=== PATIENT | male | born 1960 | race Caucasian/White ===

== ENCOUNTER → 2019-11-22 10:05 | Outpatient (BNVA) | payer MEDICARE, SELFPAY | PROVIDERS: Family Provider Internal Medicine; PCP Internal Medicine; Visit Provider Urology | DX: N41.1 Chronic prostatitis (principal) | CPT/HCPCS: 81001 ==

== ENCOUNTER 2020-05-22 08:24 | Outpatient (CLI) | payer MEDICARE, SELFPAY ==
--- NOTE | 2020-05-22 08:50 | CT_ITS ---
WS: [id number] LDCT LUNG CANCER SCREENING HISTORY: NICOTINE DEPENDENCE, CIGARETTES TECHNIQUE: Axial imaging performed from the apices to 1 cm below the costophrenic angles. Coronal and sagittal reformats are submitted with axial MIP series. All CT scans at [facility] use at least one of these dose optimization techniques: automated exposure control; mA and/or kV adjustment per patient size (includes targeted exams where dose is matched to clinical indication); or iterativ e reconstruction. DLP: 54.9 mGy.cm DIvol: 1.52 mGy COMPARISON: None available. Diagnostic quality: Satisfactory Lung Nodules: No pulmonary nodule or groundglass attenuation. No endobronchial lesions. Lungs: Mild hyperinflation. No pneumonia. Heart: Normal size heart. Other findings: Mild atherosclerosis aorta. Normal size pulmonary artery. Moderate coronary artery ca lcifications. Prior cholecystectomy. CT/CT lung screening [id number] IMPRESSION: LUNG-RADS: 1S-Negative with Significant Findings FOLLOW UP: 12 Month: Continue annual screening with LDCT OTHER FINDINGS (S MODIFIER): Moderate coronary artery atherosclerosis.
--- NOTE | 2020-05-22 08:51 | CT_ITS ---
WS: [id number] CT ABDOMEN AND PELVIS WITH CONTRAST HISTORY: Diffuse abdominal pain. TECHNIQUE: Imaging performed of the abdomen and pelvis with IV contrast. Single phase imaging of the abdomen. Coronal and sagittal reformats are submitted. All CT scans at [facility] use at least one of these dose optimization techniques: automated exposure control; mA and/or kV adjustment per patient size (includes targeted exams where dose is matched to clinical indication); or iterativ e reconstruction. IV CONTRAST: Omnipaque 300; 95 mL IV. Oral contrast: Yes. DLP: 1802.81 mGy.cm COMPARISON: 05/11/2016 Lower thorax: Lung bases are clear. Heart is normal size. No hiatal hernia. Liver/biliary system: Normal size with no intrahepatic dilatation. Gallbladder: Status post cholecystectomy. Pancreas: Normal. Spleen: Normal size spleen with granulomata. Adrenal glands: Normal. Right kidney: Several low-attenuation masses in the cortex of the RIGHT kidney. Similar in appearance to 2016. No solid enlarging mass. No cortical thinning or hydronephrosis. Left kidney: Mild perinephric stranding. Upper pole cyst measures 11 mm. No hydronephrosis or solid m ass. Aorta: Mild atherosclerosis with no aneurysm. Lymphadenopathy: None. Free fluid: None. GI tract: Normal appendix. There is mild fecal retention and constipation. No obstruction. No signifi cant diverticular disease. Abdominal wall: Unremarkable abdominal wall. No hernia. Pelvis: No free fluid or adenopathy. Bones: Increase in lumbar lordosis. L4-5 posterior lumbar fusion with interbody spacer. CT/CT abdomen pelvis w con* [id number] IMPRESSION: 1. No acute abdominal or pelvic abnormalities. 2. Prior cholecystectomy. 3. Atherosclerosis aorta with no aneurysm. 4. Stable bilateral renal cysts.
[2020-05-22] MEDS: iohexol 300 mg/mL 50 mL Btl PO (09:00)
[2020-05-22] MEDS: iohexol 300 mg/mL 100 mL Btl IV (10:46)
== END 2020-05-22 08:25 | disposition home or self-care (01) ==
LOC: RAD 08:25
PROVIDERS: PCP Internal Medicine; Visit Provider Internal Medicine
DX: R10.9 Unspecified abdominal pain (principal); F17.218 Nicotine dependence, cigarettes, with other nicotine-induced disorders; N28.1 Cyst of kidney, acquired; I70.0 Atherosclerosis of aorta; I25.10 Atherosclerotic heart disease of native coronary artery without angina pectoris
CPT/HCPCS: 74177; G0297

== ENCOUNTER 2020-05-22 12:24 | Outpatient (CLI) | payer MEDICARE, SELFPAY ==
[2020-05-22 14:22] LABS: Basophils % 0.3 %; Eosinophils # 0.1 10^3/uL (0.0-0.8); Eosinophils % 0.9 %; Hematocrit 54.1 % (42.0-52.0); Hemoglobin 17.6 g/dL (11.7-16.6); Lymphocytes # 3.2 10^3/uL (0.8-4.8); Mean Corpuscular HGB Conc 32.5 g/dL (30.0-36.0); Mean Corpuscular Hemoglobin 28.5 pg (28.0-34.0); Mean Corpuscular Volume 87.5 fL (80-94); Mean Platelet Volume 10.3 fL (7.4-10.4); Monocytes # 1.2 10^3/uL (0.2-0.9); Monocytes % 8.3 %; Neutrophils # 9.32 10^3/uL (1.8-7.7); Neutrophils % 66.4 %; Nucleated Red Blood Cells % 0 %; Platelet Count 326 10^3/cmm (130-400); Red Blood Count 6.18 10^6/uL (4.1-5.3); Red Cell Distribution Width 14.2 % (12.1-15.1)
[2020-05-22 14:42] LABS: Alanine Aminotransferase 39 U/L (0-41); Albumin Level 4.5 g/dL (3.5-5.2); Alkaline Phosphatase 100 IU/L (40-130); Aspartate Amino Transferase 20 U/L (0-40); Blood Urea Nitrogen 14 mg/dL (6-20); Calcium 9.2 mg/dL (8.5-10.5); Carbon Dioxide 24 mmol/L (22-29); Chloride 102 mmol/L (98-107); Globulin 2.8 g/dL (1.3-4.6); Glomerular Filtration Rate 115.4 mL/min (90-130); Glucose 129 mg/dL (65-115); Osmolality Calculated 284 mOsm/kg (285-295); Sodium 138 mmol/L (136-145); Total Bilirubin 0.3 mg/dL (0.15-1.2); Total Protein 7.3 g/dL (6.6-8.7)
--- NOTE | 2020-05-22 15:18 | ONC CON_ITS ---
Dr. Randall New Patient Note Patient: Hammad Mckeon Unit #: [id number]: 1960 Dicatated By: Paul Randall M.D.Date of Visit: May 22, 2020 Onc MED New Patient/Consult Referring Physician: Dr. CRYSTAL BOOGIE M.D. History of Present Illness: Mr. Hammad Mckeon, is a 60-year-old gentleman with a history of morbid obesity, patient said he used to weigh 300+ pounds and has history of sleep apnea but did not use recommended CPAP machine said 'cannot keep anything on my face'. Now with excessive sleep during daytime and not getting enough sleep at night, patient cannot sleep on his back and uses one pillow only. Also complaining of generalized weakness and fatigue. And he has longstanding history of smoking and still smoke about a pack a day., Denies alcohol use Lab work-up done and PMDs office on May 06, 2020 showed white blood count 13.7 hemoglobin 18 hematocrit 54 normal being 37.5-51, RBC 6.27 normal being 4.14-5.80, platelet count 324,000 with a normal differential further lab testing including erythropoietin level, 6.0 mIU per mL normal being 2.6-18.5, LDH 188 ferritin 153 iron saturation 27% iron 97 TIBC [address] scan of abdomen pelvis on May 22, 2020 which showed no acute abdominopelvic abnormalities, spleen is in normal range low-dose CT scan of lung cancer screening done on May 22, 2020 showed no abnormality History of coronary artery disease status post 3 stents in the past Also has 20+ year history of mild leukocytosis, no work-up was done in the past. Denies any fever chills, denies any nausea or vomiting denies any diarrhea or constipation denies any hemoptysis or hematemesis, recently found to have occult blood in stool now being referred to Dr. Garcia for possible colonoscopy Past Medical History: Mr. Mckeon's medical history consists of chronic pain, degenerative disease of the spine, fibromyalgia, hyperlipidemia, and hypertension. Past Surgical History: Mr. Mckeon's surgical/procedural history consists of angioplasty, hernia repair, and vasectomy. Medications: Albuterol Sulfate 2 Puff(s) (of 108 (90 base) mcg/act) Aerosol Powder, Breath Activated Inhalation q 4 hours PRN, Finasteride 1 Tablet (of 5 mg) Oral daily, Lisinopril 1 Tablet (of 20 mg) Oral daily, Metoprolol Tartrate 1 Tablet (of 25 mg) Oral b.i.d., Omeprazole 1 Capsule (of 40 mg) Capsule Delayed Release Oral b.i.d., Tamsulosin HCl 1 Capsule (of 0.4 mg) Oral b.i.d., traMADol HCl 1 Tablet (of 50 mg) Oral q 8 hours PRN Allergies: Codeine Sulfate and Sulindac. Social History: Mr. Mckeon is . He is a daily smoker who has smoked 1.0 pack/day for 45 years. He has no history of drinking. He has indicated exposure to the following products: cigarettes. Family History: Mr. Mckeon's mother is alive: coronary artery disease, and hypertension, and stomach cancer. Mr. Mckeon's father at age 84: stroke. His paternal grandfather is : lung cancer. Review Of Symptoms: Review of Systems is not available for this patient. Vital Signs: Performed on May 22, 2020 13:39: 0, 32.88 (HIGH), 2.36 sq.m, 73.00 in, 98 %, 98 /min, 24 /min, 118/66 mm(hg), 97.6 F (LOW), and 249.2 lbs (HIGH). Performance Status: 0 - Fully active, able to carry on all predisease activities without restrictions. (ECOG) Physical Examination: ENMT - No mouth sores, no thrush, no jaundice, Respiratory - Poor air entry otherwise clear, Cardiovascular - Regular rate and rhythm of heart, Abdomen - Soft, bowel sounds present, Extremities - No visible edema. Lab/Imaging: Most recent lab results are not available for this patient. Impression: Leukocytosis/polycythemia with a normal platelet count, etiology unclear could be multifactorial including due to hypoxia due to sleep apnea and chronic smoking and leukocytosis could be due to chronic smoking or underlying subclinical chronic bronchitis or stress. Other possibility could be myeloproliferative disorder especially in the presence of leukocytosis and polycythemia together. Generalized weakness and fatigue, excessive sleep during daytime probably due to sleep apnea Chronic smoking Coronary artery disease status post stenting Obesity Plan: Discussed with patient regarding his labs from May 06, 2020 which showed white blood count 13.7 hemoglobin 18 hematocrit 54 normal being 37.5-51 and platelet count 324,000 with a normal differential and iron studies within normal range, erythropoietin on the low side of normal range. Clinically, patient doing reasonably well but with generalized weakness and fatigue and excessive sleep during daytime which is most likely due to sleep apnea, sleep study was recommended but patient declined ,because of personal reasons and moreover does not want to use CPAP machine. Patient said his PMD did exertional pulse oximetry and there was not much change in his oxygen level. Patient was advised his polycythemia could be secondary to underlying sleep apnea causing hypoxia as well as due to chronic smoking, he was advised to quit smoking and was offered any assistance he may need. In the meantime, we will consider testing for Herman 2 mutation to rule out polycythemia vera and also consider FISH for BCR/ABL to rule out early stage CML His hematocrit level is in reasonable range and moreover recently he was found to have occult blood in stool, patient is being referred to Dr. Garcia for colonoscopy, will continue to monitor his hemoglobin/hematocrit and his red blood cell count is less than 25% over normal range, patient was advised to maintain good hydration. Also advised to use multiple pillows to keep his upper body elevated at 45 degrees during sleep, may help his sleep apnea., Ideally, patient should consider sleep study to confirm sleep apnea as he will benefit from CPAP machine which may also improve his polycythemia, As well as his generalized weakness and fatigue. In the meantime, he may benefit from oxygen supplement at night. Patient return to clinic in 3 weeks with CBC, by that time will have his Herman 2 mutation testing and BCR ABL reports back. Signed By: Paul Randall M.D. <<Signature on File>>
== END 2020-05-22 12:25 | disposition home or self-care (01) ==
LOC: ONCMED 12:26
PROVIDERS: PCP Internal Medicine; Visit Provider Internal Medicine Hematology & Oncology
DX: D75.1 Secondary polycythemia (principal); D72.829 Elevated white blood cell count, unspecified; G47.10 Hypersomnia, unspecified; R53.1 Weakness; R53.83 Other fatigue; R19.5 Other fecal abnormalities; F17.210 Nicotine dependence, cigarettes, uncomplicated; I25.10 Atherosclerotic heart disease of native coronary artery without angina pectoris; E66.9 Obesity, unspecified; Z95.5 Presence of coronary angioplasty implant and graft
CPT/HCPCS: 36415; 80053; 81270; 85025; 99203

== ENCOUNTER 2020-06-26 16:17 | Outpatient (CLI) | payer MEDICARE, SELFPAY ==
[2020-06-26 16:41] LABS: Basophils % 0.3 %; Eosinophils # 0.2 10^3/uL (0.0-0.8); Eosinophils % 1.1 %; Hematocrit 51.8 % (42.0-52.0); Hemoglobin 16.9 g/dL (11.7-16.6); Lymphocytes # 3.2 10^3/uL (0.8-4.8); Lymphocytes % 21.8 %; Mean Corpuscular HGB Conc 32.6 g/dL (30.0-36.0); Mean Corpuscular Hemoglobin 28.6 pg (28.0-34.0); Mean Corpuscular Volume 87.8 fL (80-94); Mean Platelet Volume 10.2 fL (7.4-10.4); Monocytes # 1.1 10^3/uL (0.2-0.9); Monocytes % 7.2 %; Neutrophils # 10.16 10^3/uL (1.8-7.7); Neutrophils % 68.5 %; Nucleated Red Blood Cells % 0 %; Platelet Count 326 10^3/cmm (130-400); Red Cell Distribution Width 13.4 % (12.1-15.1); White Blood Count 14.8 10^3/uL (4.0-10.0)
--- NOTE | 2020-07-18 09:25 | ONC FU_ITS ---
Dr. Randall follow up note Patient: Hammad Mckeon Unit #: [id number]: 1960 Dicatated By: Paul Randall M.D.Date of Visit:Jun 27, 2020 Onc Med Follow-up/Prog Note History of Present Illness: Mr. Hammad Mckeon, is a 60-year-old gentleman with a history of morbid obesity, patient said he used to weigh 300+ pounds and has history of sleep apnea but did not use recommended CPAP machine said 'cannot keep anything on my face'. Now with excessive sleep during daytime and not getting enough sleep at night, patient cannot sleep on his back and uses one pillow only. Also complaining of generalized weakness and fatigue. And he has longstanding history of smoking and still smoke about a pack a day., Denies alcohol use Lab work-up done and PMDs office on May 06, 2020 showed white blood count 13.7 hemoglobin 18 hematocrit 54 normal being 37.5-51, RBC 6.27 normal being 4.14-5.80, platelet count 324,000 with a normal differential further lab testing including erythropoietin level, 6.0 mIU per mL normal being 2.6-18.5, LDH 188 ferritin 153 iron saturation 27% iron 97 TIBC [address] scan of abdomen pelvis on May 22, 2020 which showed no acute abdominopelvic abnormalities, spleen is in normal range low-dose CT scan of lung cancer screening done on May 22, 2020 showed no abnormality History of coronary artery disease status post 3 stents in the past Also has 20+ year history of mild leukocytosis, no work-up was done in the past. Denies any fever chills, denies any nausea or vomiting denies any diarrhea or constipation denies any hemoptysis or hematemesis, recently found to have occult blood in stool now being referred to Dr. Garcia for possible colonoscopy Herman 2 mutation Checked on May 22, 2020 not detected Came for follow-up, denies any specific complaints, no fever chills, no nausea or vomiting, no diarrhea or constipation, mild chronic cough still smoke about a pack a day and not using recommended CPAP machine rather said elevating head of bed did help him and is also tried his 's oxygen. Medications: Albuterol Sulfate 2 Puff(s) (of 108 (90 base) mcg/act) Aerosol Powder, Breath Activated Inhalation q 4 hours PRN, Finasteride 1 Tablet (of 5 mg) Oral daily, Lisinopril 1 Tablet (of 20 mg) Oral daily, Metoprolol Tartrate 1 Tablet (of 25 mg) Oral b.i.d., Omeprazole 1 Capsule (of 40 mg) Capsule Delayed Release Oral b.i.d., Tamsulosin HCl 1 Capsule (of 0.4 mg) Oral b.i.d., traMADol HCl 1 Tablet (of 50 mg) Oral q 8 hours PRN Allergies: Codeine Sulfate and Sulindac. Review of Systems: Review of Systems is not available for this patient. Vital Signs: Performed on Jun 27, 2020 09:27 Height - 73.00 in Weight - 249.8 lbs (HIGH) BSA - 2.37 sq.m BMI - 32.96 (HIGH) Temperature - 98.6 F Pulse - 94 /min Respiration - 20 /min BP - 147/95 mm(hg) (HIGH) O2 Sat - 97 % Pain - 0 Performance Status: 0 - Fully active, able to carry on all predisease activities without restrictions. (ECOG) Physical Examination: ENMT - No mouth sores, no thrush, no jaundice, Respiratory - Lungs are clear to auscultation, Heart S1-S2, Abdomen - Soft, bowel sounds present, Extremities - No visible edema or rash. Lab/Imaging: Most recent lab results are not available for this patient. Impression: Leukocytosis/polycythemia with a normal platelet count, etiology unclear could be multifactorial including due to hypoxia due to sleep apnea and chronic smoking and leukocytosis could be due to chronic smoking or underlying subclinical chronic bronchitis or stress. Other possibility could be myeloproliferative disorder especially in the presence of leukocytosis and polycythemia together. Herman 2 mutation tested on May 22, 2020, was not detected Generalized weakness and fatigue, excessive sleep during daytime probably due to sleep apnea Chronic smoking Coronary artery disease status post stenting Obesity Plan: Discussed with patient regarding his labs white blood count 14.6 hemoglobin 16.9 hematocrit 51.8 compared to 54.1 on May 22, 2020 and platelets 326,000 and Herman 2 mutation was tested to rule out polycythemia vera came back negative Clinically, patient doing well with no signs symptom and his follow-up labs shows persistent mild leukocytosis with mildly elevated neutrophils otherwise normal differential and hematocrit have improved, either with elevation of headboard or as patient said he has been using 's oxygen, as far as etiology of polycythemia is concerned probably secondary to hypoxia due to sleep apnea and chronic smoking as Herman 2 mutation came back negative which has ruled out polycythemia vera., Patient was advised to quit smoking and was offered any assistance he may need and he was also advised to use CPAP machine as recommended by his physician patient said he will try. As well leukocytosis concerned probably reactive too to chronic smoking, causing chronic bronchitis or due to smoking itself but to rule out CML, BCL/ABL testing was ordered last time but due to specimen collection in the wrong tube, it was not done so we will collect his placement for BCR/ABL in an appropriate specimen tube this time and then patient return to clinic in 1 month with CBC and to discuss further. Signed By: Paul Randall M.D. <<Signature on File>>
== END 2020-06-26 16:18 | disposition home or self-care (01) ==
PROVIDERS: PCP Internal Medicine; Visit Provider Internal Medicine Hematology & Oncology
DX: D75.1 Secondary polycythemia (principal); D72.829 Elevated white blood cell count, unspecified
CPT/HCPCS: 36415; 85025; 88374

== ENCOUNTER 2020-06-27 06:00 | Outpatient (CLI) | payer MEDICARE, SELFPAY | END 2020-06-27 06:01 | disposition home or self-care (01) | LOC: ONCMED 07-22 05:17 | PROVIDERS: PCP Internal Medicine; Visit Provider Internal Medicine Hematology & Oncology | DX: D75.1 Secondary polycythemia (principal); D72.829 Elevated white blood cell count, unspecified; F17.210 Nicotine dependence, cigarettes, uncomplicated; G47.10 Hypersomnia, unspecified | CPT/HCPCS: 99214 ==

== ENCOUNTER 2020-07-24 06:06 | Outpatient (CLI) | payer MEDICARE, SELFPAY ==
[2020-07-24 11:16] LABS: Basophils # 0.1 10^3/uL (0.0-0.1); Basophils % 0.4 %; Eosinophils # 0.2 10^3/uL (0.0-0.8); Eosinophils % 1.7 %; Hematocrit 51.7 % (42.0-52.0); Hemoglobin 16.5 g/dL (11.7-16.6); Lymphocytes % 24.5 %; Mean Corpuscular HGB Conc 31.9 g/dL (30.0-36.0); Mean Corpuscular Hemoglobin 28.8 pg (28.0-34.0); Mean Corpuscular Volume 90.2 fL (80-94); Mean Platelet Volume 10.2 fL (7.4-10.4); Monocytes % 7.8 %; Neutrophils % 64.7 %; Nucleated Red Blood Cells % 0 %; Platelet Count 345 10^3/cmm (130-400); Red Blood Count 5.73 10^6/uL (4.1-5.3); Red Cell Distribution Width 13.5 % (12.1-15.1); White Blood Count 12.2 10^3/uL (4.0-10.0)
== END 2020-07-24 06:07 | disposition home or self-care (01) ==
PROVIDERS: PCP Internal Medicine; Visit Provider Internal Medicine Hematology & Oncology
DX: D75.1 Secondary polycythemia (principal)
CPT/HCPCS: 36415; 85025

== ENCOUNTER 2020-07-25 05:41 | Outpatient (CLI) | payer MEDICARE, SELFPAY ==
--- NOTE | 2020-07-25 10:52 | ONC FU_ITS ---
Dr. Randall follow up note Patient: Hammad Mckeon Unit #: [id number]: 1960 Dicatated By: Paul Randall M.D.Date of Visit:Jul 25, 2020 Onc Med Follow-up/Prog Note History of Present Illness: Mr. Hammad Mckeon, is a 60-year-old gentleman with a history of morbid obesity, patient said he used to weigh 300+ pounds and has history of sleep apnea but did not use recommended CPAP machine said 'cannot keep anything on my face'. Now with excessive sleep during daytime and not getting enough sleep at night, patient cannot sleep on his back and uses one pillow only. Also complaining of generalized weakness and fatigue. And he has longstanding history of smoking and still smoke about a pack a day., Denies alcohol use Lab work-up done and PMDs office on May 06, 2020 showed white blood count 13.7 hemoglobin 18 hematocrit 54 normal being 37.5-51, RBC 6.27 normal being 4.14-5.80, platelet count 324,000 with a normal differential further lab testing including erythropoietin level, 6.0 mIU per mL normal being 2.6-18.5, LDH 188 ferritin 153 iron saturation 27% iron 97 TIBC [address] scan of abdomen pelvis on May 22, 2020 which showed no acute abdominopelvic abnormalities, spleen is in normal range low-dose CT scan of lung cancer screening done on May 22, 2020 showed no abnormality History of coronary artery disease status post 3 stents in the past Also has 20+ year history of mild leukocytosis, no work-up was done in the past. Denies any fever chills, denies any nausea or vomiting denies any diarrhea or constipation denies any hemoptysis or hematemesis, recently found to have occult blood in stool now being referred to Dr. Garcia for possible colonoscopy Herman 2 mutation Checked on May 22, 2020 not detected, FISH for BCR ABL was also negative Came for follow-up, denies any specific complaints, no fever chills, no nausea or vomiting, no diarrhea or constipation, no headaches blurred vision or double vision, still smoke about pack a day. Medications: Albuterol Sulfate 2 Puff(s) (of 108 (90 base) mcg/act) Aerosol Powder, Breath Activated Inhalation q 4 hours PRN, Finasteride 1 Tablet (of 5 mg) Oral daily, Lisinopril 1 Tablet (of 20 mg) Oral daily, Metoprolol Tartrate 1 Tablet (of 25 mg) Oral b.i.d., Omeprazole 1 Capsule (of 40 mg) Capsule Delayed Release Oral b.i.d., Tamsulosin HCl 1 Capsule (of 0.4 mg) Oral b.i.d., traMADol HCl 1 Tablet (of 50 mg) Oral q 8 hours PRN Allergies: Codeine Sulfate and Sulindac. Review of Systems: Review of Systems is not available for this patient. Vital Signs: Performed on Jul 25, 2020 10:01 Height - 73.00 in Weight - 251.6 lbs (HIGH) BSA - 2.37 sq.m BMI - 33.19 (HIGH) Temperature - 98.8 F Pulse - 86 /min Respiration - 24 /min BP - 158/85 mm(hg) (HIGH) O2 Sat - 96 % Pain - 0 Performance Status: 0 - Fully active, able to carry on all predisease activities without restrictions. (ECOG) Physical Examination: ENMT - No mouth sores, no thrush, no jaundice, Respiratory - Poor air entry otherwise clear, Cardiovascular - Regular rate and rhythm of heart, Abdomen - Soft, bowel sounds present, Extremities - No visible edema. Lab/Imaging: Test performed on Jul 24, 2020 10:53 WBC 12.2 10 3/uL RBC 5.73 10 6/uL HGB 16.5 g/dL HCT 51.7 % MCV 90.2 fL MCH 28.8 pg MCHC 31.9 g/dL RDW 13.5 % Platelet Count 345 10 3/cmm MPV 10.2 fL Neutrophils 7.90 10 3/uL Lymphocytes 3.0 10 3/uL Monocytes 1.0 10 3/uL Eosinophils 0.2 10 3/uL Basophils 0.1 10 3/uL Neutrophil % 64.7 % Lymphocyte % 24.5 % Monocyte % 7.8 % Eosinophil % 1.7 % Basophils % 0.4 % NRBC % 0 % Test performed on Jun 27, 2020 09:57 BCR/ABL Source ORDERED WRONG TEST/SPRSA2 BCR/ABL Previous Quant ORDERED WRONG TEST/SPRSA2 Test performed on May 22, 2020 14:10 Sodium 138 mmol/L Potassium 4.0 mmol/L Chloride 102 mmol/L CO2 24 mmol/L Anion Gap 16.0 BUN 14 mg/dL Creatinine 0.7 mg/dL Cr Clearance (Est) 182.10 mL/min eGFR 115.4 mL/min Glucose 129 mg/dL Calcium 9.2 mg/dL Osmolality - Calculated 284 mOsm/kg Protein, Total 7.3 g/dL Albumin 4.5 g/dL Globulin 2.8 g/dL Bilirubin, Total 0.3 mg/dL ALT (SGPT) 39 U/L AST (SGOT) 20 U/L Alkaline Phosphatase 100 IU/L Impression: Leukocytosis/polycythemia with a normal platelet count, etiology unclear could be multifactorial including due to hypoxia due to sleep apnea and chronic smoking and leukocytosis could be due to chronic smoking or underlying subclinical chronic bronchitis or stress. Other possibility could be myeloproliferative disorder especially in the presence of leukocytosis and polycythemia together. But less likely as Herman 2 mutation and FISH for BCR ABL came back negative Generalized weakness and fatigue, excessive sleep during daytime probably due to sleep apnea Chronic smoking Coronary artery disease status post stenting Obesity Sleep apnea Plan: Discussed with patient regarding his labs white blood count 12.2 hemoglobin 16.5 hematocrit 51.7 normal range being 42-52, platelets 345,000, FISH for BCR ABL came back negative Clinically, patient doing well with no new signs symptoms his follow-up labs shows persistent mild leukocytosis but further improvement in his white blood count today 12.2 compared to 14.8 on June 26, 2020 and FISH for BCR ABL was done which came back negative so is less likely patient has myeloproliferative disorder rather his leukocytosis appears to be reactive to chronic smoking and/chronic bronchitis. Patient was advised to quit smoking and also advised to consider CPAP as recommended by his PMD. As it may improve his secondary polycythemia. He was also advised to maintain hydration. Return to clinic in 3 months with CBC Signed By: Paul Randall M.D. <<Signature on File>>
== END 2020-07-25 05:42 | disposition home or self-care (01) ==
LOC: ONCMED 05:42
PROVIDERS: PCP Internal Medicine; Visit Provider Internal Medicine Hematology & Oncology
DX: D72.829 Elevated white blood cell count, unspecified (principal); D75.1 Secondary polycythemia; R53.1 Weakness; R53.83 Other fatigue; I25.10 Atherosclerotic heart disease of native coronary artery without angina pectoris; E66.9 Obesity, unspecified; G47.30 Sleep apnea, unspecified; F17.210 Nicotine dependence, cigarettes, uncomplicated; Z95.5 Presence of coronary angioplasty implant and graft; Z68.33 Body mass index [BMI] 33.0-33.9, adult
CPT/HCPCS: G0463

== ENCOUNTER 2020-10-07 13:38 | Outpatient (CLI) | payer MEDICARE, SELFPAY ==
[2020-10-07 14:21] LABS: Basophils # 0.1 10^3/uL (0.0-0.1); Basophils % 0.4 %; Eosinophils # 0.2 10^3/uL (0.0-0.8); Eosinophils % 1.4 %; Hematocrit 52.2 % (42.0-52.0); Hemoglobin 16.9 g/dL (11.7-16.6); Lymphocytes # 3.3 10^3/uL (0.8-4.8); Lymphocytes % 25.7 %; Mean Corpuscular HGB Conc 32.4 g/dL (30.0-36.0); Mean Corpuscular Hemoglobin 28.2 pg (28.0-34.0); Mean Corpuscular Volume 87.1 fL (80-94); Monocytes # 0.9 10^3/uL (0.2-0.9); Monocytes % 7.3 %; Neutrophils % 64.1 %; Nucleated Red Blood Cells % 0 %; Platelet Count 298 10^3/cmm (130-400); Red Blood Count 5.99 10^6/uL (4.1-5.3); Red Cell Distribution Width 13.3 % (12.1-15.1); White Blood Count 12.8 10^3/uL (4.0-10.0)
--- NOTE | 2020-10-07 16:07 | ONC FU_ITS ---
Dr. Randall follow up note Patient: Hammad Mckeon Unit #: [id number]: 1960 Dicatated By: Paul Randall M.D.Date of Visit:Oct 07, 2020 Onc Med Follow-up/Prog Note History of Present Illness: Mr. Hammad Mckeon, is a 60-year-old gentleman with a history of morbid obesity, patient said he used to weigh 300+ pounds and has history of sleep apnea but did not use recommended CPAP machine said 'cannot keep anything on my face'. Now with excessive sleep during daytime and not getting enough sleep at night, patient cannot sleep on his back and uses one pillow only. Also complaining of generalized weakness and fatigue. And he has longstanding history of smoking and still smoke about a pack a day., Denies alcohol use Lab work-up done and PMDs office on May 06, 2020 showed white blood count 13.7 hemoglobin 18 hematocrit 54 normal being 37.5-51, RBC 6.27 normal being 4.14-5.80, platelet count 324,000 with a normal differential further lab testing including erythropoietin level, 6.0 mIU per mL normal being 2.6-18.5, LDH 188 ferritin 153 iron saturation 27% iron 97 TIBC [address] scan of abdomen pelvis on May 22, 2020 which showed no acute abdominopelvic abnormalities, spleen is in normal range low-dose CT scan of lung cancer screening done on May 22, 2020 showed no abnormality History of coronary artery disease status post 3 stents in the past Also has 20+ year history of mild leukocytosis, no work-up was done in the past. Denies any fever chills, denies any nausea or vomiting denies any diarrhea or constipation denies any hemoptysis or hematemesis, recently found to have occult blood in stool now being referred to Dr. Garcia for possible colonoscopy Herman 2 mutation Checked on May 22, 2020 not detected, FISH for BCR ABL was also negative Came for follow-up, denies any specific complaints except chronic muscle aches and pains otherwise no fever chills, no nausea or vomiting, no diarrhea constipation, no headaches no shortness of breath, no chest heaviness, no nausea or vomiting.And still smoking actively Medications: Albuterol Sulfate 2 Puff(s) (of 108 (90 base) mcg/act) Aerosol Powder, Breath Activated Inhalation q 4 hours PRN, Finasteride 1 Tablet (of 5 mg) Oral daily, Lisinopril 1 Tablet (of 20 mg) Oral daily, Metoprolol Tartrate 1 Tablet (of 25 mg) Oral b.i.d., Omeprazole 1 Capsule (of 40 mg) Capsule Delayed Release Oral b.i.d., Tamsulosin HCl 1 Capsule (of 0.4 mg) Oral b.i.d., traMADol HCl 1 Tablet (of 50 mg) Oral q 8 hours PRN Allergies: Codeine Sulfate and Sulindac. Review of Systems: Review of Systems is not available for this patient. Vital Signs: Performed on Oct 07, 2020 15:12 Height - 73.00 in Weight - 251.4 lbs (LOW) BSA - 2.37 sq.m BMI - 33.17 (HIGH) Temperature - 97.6 F (LOW) Pulse - 105 /min (HIGH) Respiration - 18 /min BP - 150/78 mm(hg) (HIGH) O2 Sat - 97 % Pain - 4 Performance Status: 1 - No physically strenuous activity, but ambulatory and able to carry out light or sedentary work (e.g. office work, light house work). (ECOG) Physical Examination: ENMT - Patient denies any mouth sores, Respiratory - Denies any shortness of breath or wheezing, Cardiovascular - Denies any palpitation, Abdomen - Denies any abdominal pain, Extremities - Denies any edema. Lab/Imaging: Test performed on Oct 07, 2020 13:55 WBC 12.8 10 3/uL RBC 5.99 10 6/uL HGB 16.9 g/dL HCT 52.2 % MCV 87.1 fL MCH 28.2 pg MCHC 32.4 g/dL RDW 13.3 % Platelet Count 298 10 3/cmm MPV 11.0 fL Neutrophils 8.20 10 3/uL Lymphocytes 3.3 10 3/uL Monocytes 0.9 10 3/uL Eosinophils 0.2 10 3/uL Basophils 0.1 10 3/uL Neutrophil % 64.1 % Lymphocyte % 25.7 % Monocyte % 7.3 % Eosinophil % 1.4 % Basophils % 0.4 % NRBC % 0 % Test performed on Jun 27, 2020 09:57 BCR/ABL Source ORDERED WRONG TEST/SPRSA2 BCR/ABL Previous Quant ORDERED WRONG TEST/SPRSA2 Test performed on May 22, 2020 14:10 Sodium 138 mmol/L Potassium 4.0 mmol/L Chloride 102 mmol/L CO2 24 mmol/L Anion Gap 16.0 BUN 14 mg/dL Creatinine 0.7 mg/dL Cr Clearance (Est) 182.10 mL/min eGFR 115.4 mL/min Glucose 129 mg/dL Calcium 9.2 mg/dL Osmolality - Calculated 284 mOsm/kg Protein, Total 7.3 g/dL Albumin 4.5 g/dL Globulin 2.8 g/dL Bilirubin, Total 0.3 mg/dL ALT (SGPT) 39 U/L AST (SGOT) 20 U/L Alkaline Phosphatase 100 IU/L Impression: Leukocytosis/polycythemia with a normal platelet count, etiology unclear could be multifactorial including due to hypoxia due to sleep apnea and chronic smoking and leukocytosis could be due to chronic smoking or underlying subclinical chronic bronchitis or stress. Other possibility could be myeloproliferative disorder especially in the presence of leukocytosis and polycythemia together. But less likely as Herman 2 mutation and FISH for BCR ABL came back negative Generalized weakness and fatigue, excessive sleep during daytime probably due to sleep apnea Chronic smoking Coronary artery disease status post stenting Obesity Sleep apnea Plan: Discussed with patient regarding his labs white blood count 12.8 hemoglobin 16.9 hematocrit 52.2 platelets 258,000 Clinically, patient is doing reasonably well with no new signs symptoms his follow-up CBC shows persistent polycythemia which is secondary to hypoxia due to underlying sleep apnea but patient is declining sleep study or CPAP, as per patient, he uses home oxygen on as-needed basis, patient was encouraged to either lose weight or consider sleep study as he would benefit from CPAP or use of home oxygen on regular basis, which may improve his secondary polycythemia As for the leukocytosis concern, FISH for BCR ABL was negative and we would consider flow cytometry to rule out other myeloproliferative disorder but patient wants to wait till next appointment.. Return to clinic in 2 months with CBC and flow cytometry, patient was advised to reconsider evaluation for possible sleep apnea and in the meantime use home oxygen regularly and maintain hydrationAnd was advised to quit smoking and was offered any assistance he may need Signed By: Paul Randall M.D. <<Signature on File>>
== END 2020-10-07 13:39 | disposition home or self-care (01) ==
LOC: ONCMED 13:40
PROVIDERS: PCP Internal Medicine; Visit Provider Internal Medicine Hematology & Oncology
DX: D75.1 Secondary polycythemia (principal); G47.30 Sleep apnea, unspecified; Z99.81 Dependence on supplemental oxygen; D72.829 Elevated white blood cell count, unspecified; F17.200 Nicotine dependence, unspecified, uncomplicated; E66.9 Obesity, unspecified; Z68.33 Body mass index [BMI] 33.0-33.9, adult; I25.10 Atherosclerotic heart disease of native coronary artery without angina pectoris; Z95.5 Presence of coronary angioplasty implant and graft
CPT/HCPCS: 36415; 85025; G0463

== ENCOUNTER 2020-12-10 11:12 | Outpatient (CLI) | payer MEDICARE, SELFPAY ==
[2020-12-10 12:46] LABS: Basophils # 0.1 10^3/uL (0.0-0.1); Basophils % 0.9 %; Eosinophils # 0.2 10^3/uL (0.0-0.8); Eosinophils % 1.6 %; Hematocrit 56.9 % (42.0-52.0); Hemoglobin 17.9 g/dL (11.7-16.6); Lymphocytes # 3.1 10^3/uL (0.8-4.8); Lymphocytes % 25.8 %; Mean Corpuscular HGB Conc 31.5 g/dL (30.0-36.0); Mean Corpuscular Hemoglobin 28.5 pg (28.0-34.0); Mean Corpuscular Volume 90.6 fL (80-94); Mean Platelet Volume 10.1 fL (7.4-10.4); Monocytes # 1.3 10^3/uL (0.2-0.9); Monocytes % 10.4 %; Neutrophils # 7.33 10^3/uL (1.8-7.7); Neutrophils % 60.1 %; Nucleated Red Blood Cells % 0 %; Platelet Count 246 10^3/cmm (130-400); Red Blood Count 6.28 10^6/uL (4.1-5.3); Red Cell Distribution Width 14.2 % (12.1-15.1); White Blood Count 12.2 10^3/uL (4.0-10.0)
[2020-12-10 13:27] LABS: Alanine Aminotransferase 39 U/L (0-41); Albumin Level 4.3 g/dL (3.5-5.2); Alkaline Phosphatase 96 IU/L (40-130); Anion Gap 14.3 (5-19); Aspartate Amino Transferase 23 U/L (0-40); Blood Urea Nitrogen 15 mg/dL (6-20); Calcium 9.7 mg/dL (8.5-10.5); Carbon Dioxide 27 mmol/L (22-29); Chloride 101 mmol/L (98-107); Globulin 2.9 g/dL (1.3-4.6); Glomerular Filtration Rate 98.9 mL/min (90-130); Glucose 109 mg/dL (65-115); Osmolality Calculated 287 mOsm/kg (285-295); Potassium 4.3 mmol/L (3.5-5.1); Sodium 138 mmol/L (136-145); Total Bilirubin 0.3 mg/dL (0.15-1.2); Total Protein 7.2 g/dL (6.6-8.7)
[2020-12-12 18:27] LABS: Leuk/Lymp. Number of Markers 22; Leukemia/Lymph. Clinical Infor NOT GIVEN; Leukemia/Lymph. Spec Type BLOOD; Leukemia/Lymph. Viability 99 %
--- NOTE | 2020-12-18 13:15 | ONC FU_ITS ---
[facility] Patient Note Patient: Hammad Mckeon Unit #: [id number]: 1960 Dictated By: Mohini LindsayDate of Visit: Dec 10, 2020 Onc MED Follow-Up/Prog Note Chief Complaint: Polycythemia/leukocytosis History of Present Illness: Mr. Mckeon is a 60-year-old gentleman with a history of morbid obesity. He states he used to weigh 300+ pounds and has history of sleep apnea. He does not use recommended CPAP machine as he states I cannot keep anything on my face . He has excessive daytime drowsiness and sleepiness. He states he does not get enough sleep at night, patient cannot sleep on his back and uses one pillow only. He has chronic generalized weakness and fatigue. And he has longstanding history of smoking and still smoke about a pack a day. Denies alcohol use. Lab work-up done and Ds office on May 06, 2020 showed white blood count 13.7 hemoglobin 18 hematocrit 54 normal being 37.5-51, RBC 6.27 normal being 4.14-5.80, platelet count 324,000 with a normal differential. Further lab testing including erythropoietin level, 6.0 mIU per mL normal being 2.6-18.5, LDH 188 ferritin 153 iron saturation 27% iron 97 TIBC 360. Mr Mckeon underwent CT scan of abdomen pelvis on May 22, 2020 which showed no acute abdominopelvic abnormalities; spleen is in normal range. Low-dose CT scan of lung for cancer screening done on May 22, 2020 showed no abnormality. History of coronary artery disease status post 3 stents in the past Also has 20+ year history of mild leukocytosis, no work-up was done in the past. Denies any fever chills, denies any nausea or vomiting denies any diarrhea or constipation denies any hemoptysis or hematemesis, recently found to have occult blood in stool now being referred to Dr. Garcia for possible colonoscopy Herman 2 mutation Checked on May 22, 2020 not detected, FISH for BCR ABL was also negative. Mr. Mckeon is here today for follow-up. He has no new concerns. He states he still has fatigue but is the same. He states is no better or no worse. He states he has chronic bilateral knee pain but does not want to pursue any kind of surgery or other treatment. He states it is tolerable. He states that he has not had the Covid vaccine and is not interested in pursuing it at this time. He denies any Covid symptoms. He states his headache spot that he thinks has been a skin cancer on his right ear but that has been healing well recently. He states he is taking antioxidants and he thinks this is helping his ear a lot. He denies any new shortness of breath orthopnea. He states his breathing is about the same. He denies any diarrhea or constipation. He denies any lower extremity edema. He denies any evidence of blood clots such as unilateral swelling or sudden increase of shortness of breath. He denies any chest pain or palpitations. His ECOG is 2. Past Medical History: Chronic pain Degenerative disease of the spine Fibromyalgia Hyperlipidemia Hypertension Past Surgical History: Angioplasty Hernia repair Vasectomy Allergies: Codeine Sulfate and Sulindac. Medications: Albuterol Sulfate 2 Puff(s) (of 108 (90 base) mcg/act) Aerosol Powder, Breath Activated Inhalation q 4 hours PRN Finasteride 1 Tablet (of 5 mg) Oral daily Lisinopril 1 Tablet (of 20 mg) Oral daily Metoprolol Tartrate 1 Tablet (of 25 mg) Oral b.i.d. Omeprazole 1 Capsule (of 40 mg) Capsule Delayed Release Oral b.i.d. Tamsulosin HCl 1 Capsule (of 0.4 mg) Oral b.i.d. traMADol HCl 1 Tablet (of 50 mg) Oral q 8 hours PRN Family History: Mr. Mckeon's mother is alive: coronary artery disease, and hypertension, and stomach cancer. Mr. Mckeon's father at age 84: stroke. His paternal grandfather is : lung cancer. Social History: Mr. Mckeon is . He is a daily smoker who has smoked 1.0 pack/day for 46 years. He has no history of drinking. He has indicated exposure to the following products: cigarettes. Review Of Symptoms: Constitutional Denies fevers, chills, night sweats, no worsening or excessive fatigue or weight loss. Eyes Denies significant visual changes. No diplopia. No amaurosis. ENMT Denies changes in hearing, sore throat, mouth sores, difficulty or changes in swallowing ability, and/or sinus drainage. Hematologic/Lymphatic Denies easy bruising or bleeding. The patient denies any tender or palpable lymph nodes. Respiratory Denies new dyspnea on exertion, chest pain, cough or hemoptysis. Denies orthopnea. Still SOB but no worse Cardiovascular Denies anginal chest pain, palpitations or orthopnea. Gastrointestinal Denies nausea, vomiting, diarrhea, GI bleeding, or constipation. Denies change in bowel habits and/or stool color, no heartburn or early satiety. Genitourinary (M) Denies hematuria, dysuria, increased frequency, urgency, hesitancy or incontinence. Musculoskeletal Denies joint pain, swelling or redness. No decreased range of motion. Integumentary Denies chronic rashes, inflammation, ulcerations or skin changes. Neurologic Denies headache, blurred vision, and no areas of focal weakness or numbness. Normal gait. No sensory problems. Psychiatric Denies insomnia, depression, isac or mood swings. Vital Signs: Performed on Dec 10, 2020 12:34 Height - 73.00 in Weight - 258.2 lbs (HIGH) BSA - 2.40 sq.m BMI - 34.07 (HIGH) Temperature - 98.0 F (LOW) Pulse - 88 /min Respiration - 17 /min BP - 123/78 mm(hg) O2 Sat - 96 % Pain - 5,2 - Ambulatory/capable of all self-care, unable to perform any work activities. Up and about more than 50% of waking hours. (ECOG) Physical Examination: Constitutional Alert, oriented, no acute distress. Skin pink, warm and dry. Head Normocephalic; atraumatic. Eyes Conjunctivae and sclerae are clear and without icterus. Pupils are reactive and equal. Neck Supple without masses or thyromegaly. No jugular venous distension. Hematologic/Lymphatic No petechiae or purpura. No tender or palpable lymph nodes in the cervical or supraclavicular areas. Respiratory Lungs are clear to auscultation without rhonchi or wheezing. Cardiovascular Regular rate and rhythm of heart without murmurs,clicks, gallops or rubs. Abdomen Non-tender, non-distended, no masses or ascites. Good bowel sounds noted in all quads. No guarding or rebound tenderness. No pulsatile masses. Back/Spine Non-tender to palpation. Extremities No visible deformities, no cyanosis, clubbing or edema. Musculoskeletal No tenderness or swelling, normal range of motion without obvious weakness. Integumentary No rashes or lesions. Neurologic No sensory or motor deficits, normal cerebellar function, normal gait. Psychiatric Alert and oriented times three. Coherent speech. Verbalizes understanding of our discussions today. Laboratory:Test performed on Dec 10, 2020 11:40 Sodium 138 mmol/L Potassium 4.3 mmol/L Chloride 101 mmol/L CO2 27 mmol/L Anion Gap 14.3 BUN 15 mg/dL Creatinine 0.8 mg/dL Cr Clearance (Est) 164.7000 mL/min eGFR 98.9 mL/min Glucose 109 mg/dL Osmolality - Calculated 287 mOsm/kg Calcium 9.7 mg/dL Protein, Total 7.2 g/dL Albumin 4.3 g/dL Globulin 2.9 g/dL Bilirubin, Total 0.3 mg/dL ALT (SGPT) 39 U/L AST (SGOT) 23 U/L Alkaline Phosphatase 96 IU/L WBC 12.2 10 3/uL RBC 6.28 10 6/uL HGB 17.9 g/dL HCT 56.9 % MCV 90.6 fL MCH 28.5 pg MCHC 31.5 g/dL RDW 14.2 % Platelet Count 246 10 3/cmm MPV 10.1 fL Neutrophils 7.33 10 3/uL Lymphocytes 3.1 10 3/uL Monocytes 1.3 10 3/uL Eosinophils 0.2 10 3/uL Basophils 0.1 10 3/uL Neutrophil % 60.1 % Lymphocyte % 25.8 % Monocyte % 10.4 % Eosinophil % 1.6 % Basophils % 0.9 % NRBC % 0 % Leukemia/Lymphoma Interp NOT GIVEN Test performed on Jun 27, 2020 09:57 BCR/ABL Source ORDERED WRONG TEST/SPRSA2 BCR/ABL Previous Quant ORDERED WRONG TEST/SPRSA2 Impression: Leukocytosis/polycythemia with a normal platelet count, etiology unclear could be multifactorial including due to hypoxia due to sleep apnea and chronic smoking and leukocytosis could be due to chronic smoking or underlying subclinical chronic bronchitis or stress. Other possibility could be myeloproliferative disorder especially in the presence of leukocytosis and polycythemia together. But less likely as Herman 2 mutation and FISH for BCR ABL came back negative Generalized weakness and fatigue, excessive sleep during daytime probably due to sleep apnea Chronic smoking Coronary artery disease status post stenting Obesity Sleep apnea Plan: PROBLEMS ADDRESSED TODAY 1. Polycythemia/leukocytosis A. His FISH for BCR ABL was negative B. Flow cytometry was not obtained until the blood work was drawn today. Is currently pending at visit. C. Today's labs were reviewed in detail discussed with Mr. Mckeon. WBC 12.2, hemoglobin 17.9, platelets 10 46,000 and ANC is 7330. D. Dr. Randall's last office notes indicate that he could be having persistent polycythemia secondary to hypoxia due to underlying treated sleep apnea. Mr. Mckeon has not pursued a sleep study or CPAP. E. Once his flow studies are returned we will review his results with Dr. Randall and call Mr. Call back with further instructions. Dr. Randall is currently out of the office but will return next week. F. Mr. Mckeon instructed to contact us in interim should questions or problems arise. Signed By: Mohini Lindsay-, [facility] Paul Randall MD <<Signature on File>>
== END 2020-12-10 11:13 | disposition home or self-care (01) ==
LOC: ONCMED 11:15
PROVIDERS: Internal Medicine Hematology & Oncology; PCP Internal Medicine; Visit Provider Nurse Practitioner
DX: D75.1 Secondary polycythemia (principal); D72.829 Elevated white blood cell count, unspecified; G47.30 Sleep apnea, unspecified; E66.9 Obesity, unspecified; Z68.34 Body mass index [BMI] 34.0-34.9, adult
CPT/HCPCS: 36415; 80053; 85025; 88184; 88185; 99214

== ENCOUNTER → 2021-01-19 09:30 | Outpatient (BNVA) | payer MEDICARE, SELFPAY | PROVIDERS: PCP Internal Medicine; Visit Provider Urology | DX: Z12.5 Encounter for screening for malignant neoplasm of prostate (principal); N40.1 Benign prostatic hyperplasia with lower urinary tract symptoms; N13.8 Other obstructive and reflux uropathy | CPT/HCPCS: 81003; G0103 ==

== ENCOUNTER 2021-04-02 12:37 | Outpatient (CLI) | payer MEDICARE, SELFPAY ==
--- NOTE | 2021-04-02 13:00 | MR_ITS ---
WS: [id number] MRI LEFT KNEE NONCONTRAST TECHNIQUE: Axial PD, coronal PD fat sat, coronal PD, sagittal PD, and sagittal PD fat-sat images obta ined. CLINICAL INFORMATION: LEFT KNEE JOINT PAIN COMPARISON: None. FINDINGS: Distal quadriceps and patella tendons are intact. Hypertrophic patella. Normal ACL and PCL. Hypertrop hic patella. Chronic thinning of the medial and lateral meniscus. No acute appearing meniscal tears. Moderate chondromalacia involving the medial and lateral joint compartments. Moderate to advanced chondromalacia patella worse involving the medial patella facet. Subchondral yanet ma involving the patella. Normal medial and lateral patellar retinaculum. Soft tissue edema about the knee joint. Normal popliteal fossa. Normal medial and lateral collateral ligaments. Normal bone miriam ow signal in the femoral condyles and tibial plateau. MR/MR knee LT wo con* [id number] IMPRESSION: 1. Normal ACL and PCL. 2. No acute appearing meniscal tears. Moderate chronic narrowing of the medial and lateral joint compartments with chondromalacia. 3. Advanced grade IV chondromalacia patella with subchondral edema worse invol ving the medial patella facet. 4. Medial and lateral collateral ligaments are intact. Outbridge grading: grade III: partial-thickness cartilage loss with focal ulcer ation
== END 2021-04-02 12:38 | disposition home or self-care (01) ==
LOC: RADSHAW 12:38
PROVIDERS: PCP Internal Medicine; Visit Provider Nurse Practitioner Family
DX: M25.562 Pain in left knee (principal); M22.42 Chondromalacia patellae, left knee
CPT/HCPCS: 73721

== ENCOUNTER 2021-04-09 06:40 | Outpatient (CLI) | payer MEDICARE, SELFPAY ==
[2021-04-09 07:09] VITALS: BMI 37.3
--- NOTE | 2021-04-09 07:09 | ECG_ITS ---
[facility] Test Date: 2021-04-09 Pat Name: Hammad Mckeon Department: Room: Gender: Male Slumber Room Attendant: : 1960 Requested By: Ada Simons Order Number: [id number] [place] MD: ADA SIMONS Interpretive Statements NAME OF STUDY: LEXISCAN SESTAMIBI STRESS TEST INDICATION: Chest Pain, NOTE: Please note that this is the electrocardiogram portion of the Lexiscan/Sestamibi stress test. The perfusion scan will be documented separately. DATA: Baseline heart rate was 88 beats per minute. Baseline blood pressure was 154/110 millimeters of mercury. Target heart rate was 119. Maximum heart rate achieved was 117. which was 73 % of the predicted target heart rate. Maximum blood pressure was 172/110 millimeters of mercury. The reason for ending the test was completion of the protocol. The patient did not experience any symptoms. ELECTROCARDIOGRAM: BASELINE: Sinus rhythm. Normal axis. Otherwise, no ST-T changes suggestive of ischemia noted. No arrhythmia noted. EXERCISE: After Lexiscan injection, no ST-T changes suggestive of ischemic noted. No arrhythmia noted. CONCLUSION: Please note due to baseline abnormality of the EKG specificity and sensitivity of the EKG portion of LexiScan MIBI stress test will be low 1. EKG not suggestive of ischemia 2. Lexiscan injection triggered hypertensive response. 3. Perfusion scan will be documented separately. Electronically Signed On 04-09-2021 11:23:13 CDT by ADA SIMONS [id number]
--- NOTE | 2021-04-09 07:09 | NMCV_ITS ---
NM mac perf SPECT r/s* [id number] Mike Hammad Age: 60 Gender: M : 1960 Exam Date: 04/09/2021 08:06 Ordering Phys: Ada Simons MD ([email or web address]) Technologist: BRIAN Alston Exam Location: [facility] Indications: CHEST PAIN STRESS TEST Please see separate stress test report in [facility] for full findings IMAGE PROTOCOL Radiopharmaceutical Dose (mCi) Administration Site Administered by Rest: Tc-99m IV Sestamibi Stress:Tc-99m IV Sestamibi Rest: Discovery 630 Stress: Discovery 630 Small area of fixed perfusion defect noted in basal to mid anterior wall on the rest images which improved over stress images suggestive of artifact. Medium- sized area of moderate reversibility noted in the basal to mid inferolateral wall suggestive of ischemia in circumflex territory. SPECT RESULTS Technical Quality: Raw Data Analysis: Image Corrections: Summed Stress Score: 0 Summed Rest Score: 0 Summed Difference Score: 0 PERFUSION FINDINGS Small area of decreased tracer uptake noted on the rest images in the mid anterior wall which improved on stress images suggestive of artifact. Medium- sized area of moderate reversibility noted in basal to mid inferolateral wall suggestive of ischemia in the circumflex territory FUNCTIONAL RESULTS (calculated via Gated SPECT) Rest Image LV EF (%): 70 FUNCTIONAL FINDINGS: There is normal left ventricular systolic function. IMPRESSIONS Medium-sized area of moderate reversibility noted in the basal to mid inferolateral wall suggestive of ischemia in circumflex territory. EKG segment was documented separately. Ada Simons MD (Electronically Signed) Final Date: 09 April 2021 16:52 S
--- NOTE | 2021-04-09 07:15 | USCV_ITS ---
Hammad Mckeon Age: 60 Gender: M : 1960 Exam Date: 04/09/2021 06:58 Ordering Phys: Ada Simons MD ([email or web address]) Technologist: Exam [place] [facility] [place]: CHEST PAIN BP: 160 / 80 HR: 88 Rhythm: Sinus Technical Quality: Fair MEASUREMENTS (Male / Female) Normal Values 2D ECHO LV Diastolic Diameter PLAX 5.0 cm 4.2 - 5.9 / 3.9 - 5.3 cm LV Systolic Diameter PLAX 2.8 cm IVS Diastolic Thickness 1.0 cm 0.6 - 1.0 / 0.6 - 0.9 cm IVS Systolic Thickness 1.6 cm LVPW Diastolic Thickness 1.2 cm 0.6 - 1.0 / 0.6 - 0.9 cm LVPW Systolic Thickness 1.2 cm LVOT Diameter 2.1 cm LV Ejection Fraction 2D Teich 71.1 % LV Ejection Fraction MOD 2C 66.9 % LV Ejection Fraction 2C AL 68.3 % LA Diameter 3.4 cm LA Width 3.9 cm LA Height 4.7 cm RA Width 3.7 cm RA Height 5.4 cm DOPPLER AV Peak Velocity 157.0 cm/s LVOT Peak Velocity 94.0 cm/s AV Area Cont Eq vti 2.6 cm squared AV Area Cont Eq pk 2.0 cm squared MV Area PHT 5.0 cm squared Mitral E to A Ratio 0.8 MV E' Velocity 41.0 cm/s Mitral E to MV E' Ratio 9.9 Mitral E to LV E' Lateral Ratio 10.9 Mitral E to LV E' Septal Ratio 9.1 TR Peak Velocity 147.0 cm/s TR Peak Gradient 8.6 mmHg Right Atrial Pressure 3.0 mmHg Pulmonary Artery Systolic Pressu 11.6 mmHg PV Peak Velocity 70.0 cm/s FINDINGS Left Ventricle Normal left ventricular cavity size. Normal left ventricular systolic function. No regional wall motion abnormalities. Left ventricular ejection fraction is estimated at 55 %. Grade I/IV diastolic dysfunction (abnormal relaxation filling pattern), normal to mildly elevated filling pressures. Right Ventricle The right ventricle is normal in size and function. Right Atrium The right atrium is normal in size. Left Atrium The left atrium is normal in size. Mitral Valve Structurally normal mitral valve without significant stenosis or prolapse. There is no mitral regurgitation. Aortic Valve Structurally normal aortic valve without significant sclerosis or stenosis. There is no aortic regurgitation. Tricuspid Valve Structurally normal tricuspid valve without significant stenosis or regurgitation. Pulmonary artery systolic pressure is normal. Pulmonic Valve Structurally normal pulmonic valve without significant stenosis. There is no pulmonic regurgitation. Pericardium Normal pericardium without effusion. Aorta Normal ascending aorta dimension. CONCLUSIONS 1-Normal left ventricular cavity size. Normal left ventricular systolic function. No regional wall motion abnormalities. Left ventricular ejection fraction is estimated at 55 %. Grade I/IV diastolic dysfunction (abnormal relaxation filling pattern), normal to mildly elevated filling pressures. 2-There is no pericardial effusion. 3-No significant valve abnormalities. 4-Pulmonary artery systolic pressure is within normal limits. 5-There are no prior echocardiogram studies to compare. Ada Simons MD (Electronically Signed) Final Date: 09 April 2021 16:40 S
[2021-04-09 08:10] VITALS: BP 160/96; PULSE 90
[2021-04-09] MEDS: regadenoson 0.4 Mg/5 ml Syringe IVP (08:53)
== END 2021-04-09 06:41 | disposition home or self-care (01) ==
LOC: CDL 06:43
PROVIDERS: PCP Internal Medicine; Visit Provider Internal Medicine Cardiovascular Disease
DX: R07.9 Chest pain, unspecified (principal); R06.02 Shortness of breath; I25.9 Chronic ischemic heart disease, unspecified
CPT/HCPCS: 78452; 93017; 93306; A9500; J2785

== ENCOUNTER → 2021-04-20 10:32 | Outpatient (BNVA) | payer MEDICARE, SELFPAY | PROVIDERS: PCP Internal Medicine; Referring Provider Internal Medicine; Visit Provider Orthopaedic Surgery | DX: M25.561 Pain in right knee (principal); M25.562 Pain in left knee | CPT/HCPCS: 73560; 73565 ==

== ENCOUNTER → 2021-04-22 11:15 | Outpatient (BNVA) | payer MEDICARE, SELFPAY | PROVIDERS: PCP Internal Medicine; Visit Provider Internal Medicine Cardiovascular Disease | DX: Z01.812 Encounter for preprocedural laboratory examination (principal); Z20.822 Contact with and (suspected) exposure to COVID-19 | CPT/HCPCS: 80048; 85025; 85610; 87635 ==

== ENCOUNTER 2021-04-27 05:56 | Day surgery (SDC) | payer MEDICARE, SELFPAY ==
[2021-04-27] VITALS (20 sets, daily range): BP systolic 110–162; BP diastolic 66–103; PULSE 67–86; RESP 16–21; TEMP 36.8; O2SAT 92–97; BMI 35.9
--- NOTE | 2021-04-27 06:35 | XACV_ITS ---
Exam Room: 1 Ht: 180 cm Wt: 119 kg BSA: 2.48 m2 Gender: Male : 1960 Any Known Allergies: Other Exam Priority: Routine Procedure(s): Procedure Description: Diagnostic procedure Procedure Description: PCI procedure Procedure Description: Drug Eluting Coronary Stent Procedure Description: Coronary Angiography Diagnostic Cath Status: Elective Diagnostic Findings * Left Main has no disease. * Left Anterior Descending has no disease. * Distal Right Coronary Artery: significant 80% stenosis, JERMAINE: 3 flow. * Mid Circumflex: total occlusion, JERMAINE: 0 flow. * Coronary angiography shows right dominance. PCI Status: Elective Interventional Findings * Distal Right Coronary Artery: 80% stenosis treated with a MDT R ASA 2.75X22 EMERSON. 0% residual stenosis, JERMAINE: 3 flow. Conclusions 1. There is total occlusion coronary artery disease with two vessel disease. 2. Distal Right Coronary Artery was treated with a Drug Eluting Stent. Recommendations * Continue current medical management and risk factor modification. Pressures Phase:Rest AO : 102 / 31 ( 52 ) @ 8:46:00 AM 127 / 82 ( 98 ) @ 8:52:00 AM 125 / 46 ( 69 ) @ 8:54:00 AM 155 / 82 ( 111 ) @ 9:01:00 AM 147 / 87 ( 111 ) @ 9:02:00 AM 126 / 83 ( 103 ) @ 9:08:00 AM 136 / 88 ( 111 ) @ 9:14:00 AM Clinical Evaluation EBL: 5mL-10mL Procedural Details Procedure Consent Obtained. Current Diagnosis : Chest Pain. Pre-Procedure Time Out. Identified patient by full name and date of as verbalized by the patient/guarantor. Does the consent match the physician's order: Yes. Accurate & Complete Informed Consent: Yes. Inpatient/Outpatient History & Physical on Chart: Yes. If H&P is completed, is and addenduem needed: Yes; If yes, is the addendum complete: Yes. Visualize and Verify Site with Patient/Guarantor: N/A. Relevant Radiology Images available: Yes. Pre-op teaching completed and patient verbalized understanding. The risks, benefits, and alternatives of sedation and/or procedure were discussed by physician. The patient agrees to continue. Procedure started. [facility] Clinical Fraility Score: 3: Managing Well. Export Manager Indications: Worsening Angina. Chest Pain Symptom Assessment: Typical Angina Symptoms. Correct patient, site and procedure confirmed by cath team. Current diagnosis: Chest Pain. PERRLA. Strong, equal hand ship officer bilaterally. Lungs clear x 5 lobes. A 20 gauge IV was started in the left anticubital using aseptic technique. IV Fluids: 0.9% NaCl at KVO. 0 mL infused prior to vp lab. Pre Procedural Pulses: bilateral dorsalis pedis was 2+. Pre Procedural Pulses: bilateral posterior tibial was 2+. Pre Procedural Pulses: bilateral radial was 3+. Oxygen started at 2liters/min via nasal canula. right groin was prepped with chloroprep then draped in the usual sterile fashion. right radial was prepped with chloroprep then draped in the usual sterile fashion. Physician notified. Baseline sample Acquired. HR: 83 BPM. Physician arrived. Frank Myles scrubbed in. Physician scrubbed in. Immediate Pre-Procedure Time Out. Correct Patient: Yes; Correct Procedure: Yes; Correct Site: Yes; Correct Patient Position: Yes; Correct Supplies: Yes; Dried Flammable Prep: Yes; Blood Products Available: N/A;. Lidocaine 1% infiltrated to the right radial. Arterial access obtained. A 5 barbadian TIG catheter in over wire. Multiple views taken of right coronary artery. Catheter redirected to the LCA. Catheter removed over the exchange wire. A 5 barbadian Fausto catheter in over wire. Multiple views taken of left coronary artery. Catheter removed over the exchange wire. 6 barbadian AL 0.75 guide catheter was inserted over the wire. [place] guidewire was advanced through the guide catheter to lesion in the distal RCA. Inflation Number : 1 Erica Sharpe ASA 2.75X22 EMERSON -Lot Number# _[id number] Exp: 07/21/2022 was prepped and advanced across the Dist RCA. The stent was deployed at 18 LAKHWINDER for 0:28 seconds. Stent balloon out over wire. Results checked. Wire out. ACT drawn. Results 205 seconds. Therapeutic limits - pre-heparin administration 90-150 seconds and monitoring heparin during a vascular procedure >250 seconds. Guide catheter out. Physician scrubbed out. TR band placed. Hemostasis obtained. A TR Band was successful obtaining hemostatsis at the Right Radial artery insertion site. Post Procedure: Pulses reassessed and unchanged. No VTE prophylaxis required. Medication's Wasted: Lidocaine 1% = 14 mL. Medication's Wasted: Nitro = 49.8 mcg. Medication's Wasted: Other = Versed 1 mg. Total IV fluids: 75 mL. Medication's Wasted: Heparin = 3000 units. Contrast type used: Visipaque 320 mgI/mL, 500 mL bottle. Post-op diagnosis: CAD. Complications: None. Estimated blood loss: 5mL-10mL. Procedure completed. Patient transferred by wheelchair to CPRU. Vital chart was stopped. Access Site Site: Right Radial artery Sheath Size: 6 Fr Hemostasis Method: TR Band Hemostasis Success: Successful Procedure Medications Start: 9:19 AM Stop: 9:19 AM Medication: Fentanyl Amount: 50 mcg Route: I.V. Start: 9:19 AM Stop: 9:19 AM Medication: Versed Amount: 1 mg Route: I.V. Start: 9:26 AM Stop: 9:26 AM Medication: Versed Amount: 1 mg Route: I.V. Start: 9:32 AM Stop: 9:32 AM Medication: Fentanyl Amount: 50 mcg Route: I.V. Start: 9:38 AM Stop: 9:38 AM Medication: Nitrogylcerin Amount: 200 mcg Route: I.A. Start: 9:41 AM Stop: 9:41 AM Medication: Heparin Amount: 5000 units Route: I.V. Start: 9:42 AM Stop: 9:42 AM Medication: Versed Amount: 1 mg Route: I.V. Start: 9:58 AM Stop: 9:58 AM Medication: Heparin Amount: 6000 units Route: I.V. Start: 10:02 AM Stop: 10:02 AM Medication: Aggrastat 12.5 mg/250 mL Amount: 60 ml Route: I.V. bolus Start: 10:02 AM Stop: 10:02 AM Medication: Aggrastat 12.5 mg/250 mL Amount: 21.6 ml/hr Route: I.V. bolus Start: 10:07 AM Stop: 10:07 AM Medication: Versed Amount: 1 mg Route: I.V. Start: 10:14 AM Stop: 10:14 AM Medication: Nitrogylcerin Amount: 200 mcg Route: I.C. Start: 10:16 AM Stop: 10:16 AM Medication: Versed Amount: 1 mg Route: I.V. Start: 10:18 AM Stop: 10:18 AM Medication: Plavix Amount: 600 mg Route: P.O. Start: 10:20 AM Stop: 10:20 AM Medication: Heparin Amount: 2000 units Route: I.V. I, the attending physician, have reviewed and verified all procedure medications. Yes, all medications given per verbal order History/Risk Factors Hypertension: Yes Dyslipidemia: Yes Peripheral Arterial Disease (PAD): No Myocardial Infarction (NE): Yes Obesity: No Renal Disease: No Tobacco Use: Current/Recent(w/in 1 year) Prior Interventions PCI: Yes CABG: No Valve Surgery: No Report Signatures Finalized by Ada Simons MD on 05/07/2021 02:11 PM
--- NOTE | 2021-04-27 09:10 | W.PM.OPSFHP ---
Same Day Surgery H&P Indication for Procedure/HPI DATE OF PROCEDURE: April 27, 2021 CHIEF COMPLAINT/INDICATIONFOR SURGICAL PROCEDURE: Chest pain with abnormal stress test PREOP DIAGNOSIS: Angina/abnormal stress test PLANNED PROCEDRUE: Operation Date: 04/27/21 08:30 Proposed Procedures p Left Cardiac Catheterization 07052 R06.02 R94.39 R07.9 Z95.5(Left) - Ada Simons MD 61-year-old male past medical history significant for myocardial infarction history of stent to left circumflex and arteryin 2005 according the patient it was Taxus stent, history of hypertension hyperlipidemia establish care with us with a complaining of worsening of shortness of breath and chest pain typical for angina. He did not tolerate isosorbide mononitrate when given he has been taking metoprolol JAMEL inhibitor and statin. He was on optimal medical regimen. He underwent sestamibi stress test which was suggestive of moderate ischemia it is the reason patient has been scheduled for left heart cath/PCI if indicated. Patient understand risk benefit and alternative for the procedure. I have personally explained and consented him for risk of stroke major minor bleed urgent emergent bypass surgery or vascular, stroke, bruising, hematoma, infection. He would like to proceed with it. Medications/Allergies* Home Medications Medication Instructions Recorded Confirmed Type lisinopril 20 mg tablet 20 mg PO DAILY 11/22/19 04/27/21 History metoprolol succinate 25 mg 25 mg PO BID 11/22/19 04/27/21 History tablet,extended release 24 hr omeprazole 40 mg capsule,delayed 40 mg PO DAILY 11/22/19 04/27/21 History release ciprofloxacin HCl 500 mg tablet 500 mg PO .PRN tab 01/19/21 04/27/21 History aspirin 325 mg tablet 325 mg PO DAILY 03/09/21 04/27/21 History Allergies/Adverse Reactions Allergy/AdvReac Type Severity Reaction Status Date / Time codeine Allergy Unknown Verified 04/27/21 06:50 sulindac Allergy Unknown Verified 04/27/21 06:50 Pertinent History/Comorbid Conditions* Medical History (Updated 04/20/21 @ 11:16 by Tristian Nayak MD) BPH with obstruction/lower urinary tract symptoms Chronic prostatitis GERD (gastroesophageal reflux disease) History of colon polyps HTN (hypertension), benign Surgical History (Updated 05/23/20 @ 10:19 by Rogelio Garcia MD) H/O circumcision H/O colonoscopy several yrs ago History of bilateral inguinal hernia repair History of throat surgery History of vasectomy Hx of cervical spine surgery Hx of cholecystectomy Hx of tonsillectomy Family History (Updated 05/23/20 @ 09:54 by Anushka Monzon LPN) Father, AT AGE 83 Diabetes Bleeding disorder Family/Other aunt nose bleeds continuosly Cancer Mother Father Hypertension Mother Stroke Father Denies family history of Anesthesia complication Social History Smoking and tobacco status: current every day smoker Alcohol intake: never Adopted: No Caregiver/support person: No Lives independently: No Household members: spouse Marital status: Current occupational status: retired History of recent travel: No Pertinent Exam Findings alert, oriented x 3, clear to auscultation bilaterally and operative site marked Conscious Sedation Assessment PATIENT ASSESSED PRIOR TO SEDATION, WITH NO CHANGE NOTED: Yes AIRWAY EVAL/ANESTHESIA PLAN: ASA II, Risks, benefits & alternatives of sedation and/or procedure discussed and Patient agrees to continue as planned Recommendations Surgery/Procedure today Coding Level of Care Code Acute Pipe Stem Aligner for Conchita Lorenzo
--- NOTE | 2021-04-27 10:35 | SUR.PHASEII ---
Pt received from cathead worker, 2 TR band to right radial. No signs of hematoma, no leaking or oozing noted. Radial pulse palpable 3+. Aggrastat infusing 21.6ml/hr as ordered. Orders received to stop aggrastat at 12pm.
== END 2021-04-27 15:58 | disposition home or self-care (01) ==
PROVIDERS: PCP Internal Medicine; Visit Provider Internal Medicine Cardiovascular Disease
DX: I25.10 Atherosclerotic heart disease of native coronary artery without angina pectoris (principal); R94.39 Abnormal result of other cardiovascular function study; R07.9 Chest pain, unspecified; I25.2 Old myocardial infarction; I10 Essential (primary) hypertension; K21.9 Gastro-esophageal reflux disease without esophagitis; Z86.010 Personal history of colon polyps; F17.210 Nicotine dependence, cigarettes, uncomplicated; Z95.5 Presence of coronary angioplasty implant and graft; Z79.82 Long term (current) use of aspirin; N40.1 Benign prostatic hyperplasia with lower urinary tract symptoms; N13.8 Other obstructive and reflux uropathy; Z82.49 Family history of ischemic heart disease and other diseases of the circulatory system
CPT/HCPCS: 36415; 85347; 93454; C1769; C1874; C1887; C1894; C9600; J1644; J2250; J3010; J3246; J3490; J7030; Q9967

== ENCOUNTER → 2021-05-01 09:58 | Outpatient (BNVA) | payer MEDICARE, SELFPAY | PROVIDERS: PCP Internal Medicine; Visit Provider Nurse Practitioner Family | DX: I25.10 Atherosclerotic heart disease of native coronary artery without angina pectoris (principal); Z95.5 Presence of coronary angioplasty implant and graft; I10 Essential (primary) hypertension | CPT/HCPCS: 80048 ==

== ENCOUNTER 2021-05-18 11:24 | Outpatient (CLI) | payer MEDICARE, SELFPAY ==
--- NOTE | 2021-05-18 11:28 | CT_ITS ---
WS: [id number] LDCT LUNG CANCER SCREENING HISTORY: NICOTINE Dependence, cigarettes TECHNIQUE: Axial imaging performed from the apices to 1 cm below the costophrenic angles. Coronal and sagittal reformats are submitted with axial MIP series. All CT scans at [facility] use at least one of these dose optimization techniques: automated exposure control; mA and/or kV adjustment per patient size (includes targeted exams where dose is matched to clinical indication); or iterativ e reconstruction. DLP: 82.9 mGy.cm DIvol: 2.53 mGy COMPARISON: 05/22/2020 Diagnostic quality: Satisfactory Lung Nodules: There is unchanged appearance of lungs since the prior study. There are numerous bilate ral opacifications which are predominantly groundglass within the periphery of the upper lower lung f ields. Due to the significant change probably related to pneumonitis. Lungs: Chronic emphysema. Heart: Normal size. Coronary artery calcifications are moderate. Other findings: Prior cholecystectomy. No adrenal mass. Atherosclerosis aorta. Increase in thoracic k yphosis. CT/CT lung screening [id number] IMPRESSION: LUNG-RADS: 1S-Negative with Significant Findings FOLLOW UP: Chest CT with or without contrast OTHER FINDINGS (S MODIFIER): Recommend follow-up chest CT with with or without IV contrast in 3 months. Although there are no discrete nodules there has been a change in the appearance of the lungs. Most likely due to pneumonitis. Recomm end follow-up chest CT with IV contrast in 3 months.
== END 2021-05-18 11:25 | disposition home or self-care (01) ==
LOC: CT 11:25
PROVIDERS: PCP Internal Medicine; Visit Provider Internal Medicine
DX: Z12.2 Encounter for screening for malignant neoplasm of respiratory organs (principal); F17.218 Nicotine dependence, cigarettes, with other nicotine-induced disorders; I70.0 Atherosclerosis of aorta
CPT/HCPCS: 71271

== ENCOUNTER 2021-05-26 10:26 | Outpatient (CLI) | payer MEDICARE, SELFPAY ==
--- NOTE | 2021-05-26 10:59 | XR_ITS ---
WS: [id number] RIGHT SHOULDER: 3 VIEW(S) TECHNIQUE: Internal and external rotation with Y view. HISTORY: SHOULDER PAIN, RIGHT COMPARISON: None available. No fracture or dislocation. 10 mm calcific density associated with the posterior lateral humeral head . Mild narrowing of the glenohumeral joint. Small osteophytes involving the humeral head. Mild narrowin g of the AC joint. XR/XR shoulder RT min 2V* [id number] IMPRESSION: 1. Calcific tendinitis. 2. Mild osteophytic ridging of the humeral head.
--- NOTE | 2021-05-26 10:59 | XR_ITS ---
WS: [id number] LEFT ELBOW: 3 VIEW(S) TECHNIQUE: AP, oblique and lateral. HISTORY: ELBOW PAIN, LEFT COMPARISON: None available. No acute fractures or dislocation. Tiny osseous or calcific densities adjacent to the epicondyles nayan aterally. Probably from old injury with healing. No joint effusion. No soft tissue abnormality. XR/XR elbow LT min 3V* [id number] IMPRESSION: Bilateral epicondyle calcific or osseous densities. Probably from prior epicond ylitis or injury. No acute injury or fracture or joint effusion.
== END 2021-05-26 10:27 | disposition home or self-care (01) ==
PROVIDERS: PCP Internal Medicine; Visit Provider Nurse Practitioner Family
DX: M25.511 Pain in right shoulder (principal); M25.522 Pain in left elbow; M75.31 Calcific tendinitis of right shoulder
CPT/HCPCS: 73030; 73080

== ENCOUNTER → 2022-01-11 13:58 | Outpatient (BNVA) | payer MEDICARE, SELFPAY | PROVIDERS: PCP Internal Medicine; Visit Provider Internal Medicine Cardiovascular Disease | DX: I25.10 Atherosclerotic heart disease of native coronary artery without angina pectoris (principal); I10 Essential (primary) hypertension; F17.210 Nicotine dependence, cigarettes, uncomplicated; Z95.5 Presence of coronary angioplasty implant and graft; Z79.82 Long term (current) use of aspirin | CPT/HCPCS: 99213; 99214 ==

== ENCOUNTER 2023-02-10 13:24 | Emergency (ER) | payer MEDICARE, SELFPAY ==
[2023-02-10 13:27] VITALS: BP 148/79; PULSE 96; RESP 18; TEMP 36.8; O2SAT 96
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
--- NOTE | 2023-02-10 14:04 | CTR_ITS ---
PROCEDURE INFORMATION: Exam: CT Cervical Spine Without Contrast Exam date and time: 02/10/2023 2:55 PM Age: 62 years old Clinical indication: Injury or trauma; Fall; Blunt trauma; Additional info: Fall, trauma TECHNIQUE: Imaging protocol: Computed tomography of the cervical spine without contrast. Radiation optimization: All CT scans at this facility use at least one of these dose optimization techniques: automated exposure control; mA and/or kV adjustment per patient size (includes targeted exams where dose is matched to clinical indication); or iterative reconstruction. REPORTING DATA: Count of CT and Cardiac NM exams in prior 12 months: This patient has received 0 known CTs and 0 known cardiac nuclear medicine studies in the 12 months prior to the current study. COMPARISON: MR cervical spin wo con* [id number] 05/02/2017 8:29 AM RADIATION DOSE METRICS: Total DLP (mGy-cm): 275 FINDINGS: Bones/joints: Posterior spinal decompression changes with bilateral laminectomies at the C4-C6 segment. No acute fracture. Normal alignment. No severe spinal canal stenosis. Lungs: Lung apices are normal. Soft tissues: Unremarkable. CT/CT cervical spin wo con* [id number] IMPRESSION: No acute findings.
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
== END 2023-02-10 16:32 | disposition home or self-care (01) ==
PROVIDERS: Emergency Provider Physician Assistant; PCP Internal Medicine
DX: S97.82XA Crushing injury of left foot, initial encounter (principal); M54.50 Low back pain, unspecified; Z79.82 Long term (current) use of aspirin; Z79.02 Long term (current) use of antithrombotics/antiplatelets; F17.210 Nicotine dependence, cigarettes, uncomplicated; I25.10 Atherosclerotic heart disease of native coronary artery without angina pectoris; I10 Essential (primary) hypertension; V03.00XA Pedestrian on foot injured in collision with car, pick-up truck or van in nontraffic accident, initial encounter
CPT/HCPCS: 72125; 72131; 73562; 73630; 99284

== ENCOUNTER 2023-03-23 15:08 | Outpatient (CLI) | payer MEDICARE, SELFPAY ==
--- NOTE | 2023-03-23 15:25 | CT_ITS ---
WS: [id number] CT ABDOMEN WITHOUT CONTRAST HISTORY: ABDOMINAL TENDERNESS Contiguous single phase 5 mm axial imaging performed to the abdomen. Oral contrast has been provided. Coronal and sagittal reformats are submitted. All CT scans at [facility] use at least one of these dose optimization techniques: automated exposure control; mA and/or kV adjustment per patient size (includes targeted exams where dose is matched to clinical indication); or iterative reconstruct ion. IV CONTRAST: None Oral contrast: No DLP: 588.52 mGy.cm COMPARISON: 05/22/2020 Lower thorax: Lung bases are clear. Heart is normal size. No hiatal hernia. Liver/biliary system: Normal size with no intrahepatic dilatation. Gallbladder: Status post cholecystectomy. Pancreas: Normal size pancreas and pancreatic duct. No adjacent inflammation. Spleen: Normal size with granulomata. Adrenal glands: Normal. Right kidney: Mild perinephric stranding. 11 mm nodule of increased density mid RIGHT kidney is proba abigail a hemorrhagic cyst. No obstruction. Left kidney: Mild perinephric stranding. Aorta: Mild atherosclerosis with no aneurysm. Lymphadenopathy: None. Free fluid: None. GI tract: Stomach is distended with food products. Normal appendix. No obstructive pattern. Abdominal wall: Fat containing umbilical hernia. Visualized osseous structures: Posterior fusion L4-5. CT/CT abdomen wo con [id number] IMPRESSION: 1. No acute abdominal abnormalities are identified. 2. No inferior chest wall injury. 3. Prior cholecystectomy. 4. No fractures.
--- NOTE | 2023-03-23 15:25 | MR_ITS ---
WS: [id number] MRI LEFT KNEE HISTORY: L KNEE PAIN COMPARISON: 04/02/2021, radiographs 02/10/2023. Anterior cruciate ligament: Intact. Posterior cruciate ligament: Mild thickening and intrasubstance degeneration in the ligament. No tear . Medial collateral ligament: Intact. Posterior lateral corner structures: Intact. Medial menisci: Abnormal signal involving the free edge of the meniscus, greater extending along the superior articular surface. This is predominantly towards the intercondylar notch. Lateral meniscus: Intact. Normal signal, size and shape. Extensor mechanism: Distal quadriceps tendon and patellar tendons are intact. Fluid and soft tissue: No joint effusion. Tiny amount of fluid in the region of Daly's cyst. Osseous and articular structures: Patellofemoral compartment: Loss of cartilage and moderate chondromalacia involving the medial patell ar facet. Narrowing of the joint space with small amount of subchondral edema along the medial facet. Medial compartment: Mild narrowing of the medial compartment. Moderate size defect involving the cart ilage of the femoral condyle towards the intercondylar notch. This is the same location as the blunti ng of the free edge of the posterior medial meniscus. Lateral compartment: Mild thinning of the cartilage and mild joint space narrowing. MR/MR knee LT wo con* [id number] IMPRESSION: 1. Mild thickening of the PCL but no tear. 2. Abnormal signal free edge posterior horn medial meniscus with adjacent loida dromalacia. Most consistent with fraying but a small surface defect in the meni scus is likely. 3. No significant joint effusion. 4. Mild narrowing medial and lateral compartments with chondromalacia as above . 5. Moderate chondromalacia with joint space narrowing medial patellofemoral brandon int space.
== END 2023-03-23 15:09 | disposition home or self-care (01) ==
PROVIDERS: PCP Internal Medicine; Visit Provider Nurse Practitioner Family
DX: R10.9 Unspecified abdominal pain (principal); M25.562 Pain in left knee; M22.42 Chondromalacia patellae, left knee; Z90.49 Acquired absence of other specified parts of digestive tract
CPT/HCPCS: 73721; 74150

== ENCOUNTER 2023-06-14 09:26 | Oncology outpatient (recurring) (ONCR) | payer MEDICARE, SELFPAY ==
[2023-06-14 11:01] LABS: Basophils % 0.4 %; Eosinophils # 0.2 10^3/uL (0.0-0.8); Eosinophils % 1.5 %; Hematocrit 52.6 % (37-53); Lymphocytes # 2.9 10^3/uL (0.8-4.8); Lymphocytes % 26.1 %; Mean Corpuscular HGB Conc 32.9 g/dL (30-55); Mean Corpuscular Hemoglobin 28.8 pg (27-33); Mean Corpuscular Volume 87.7 fl (82-101); Mean Platelet Volume 10.1 fL (7.4-10.4); Monocytes % 8.8 %; Neutrophils # 6.88 10^3/uL (1.8-7.7); Neutrophils % 62.3 %; Nucleated Red Blood Cells % 0 %; Platelet Count 263 10^3/cmm (157-399); Red Cell Distribution Width 13.4 % (12.1-15.1); White Blood Count 11.03 10^3/uL (3.29-11.43)
[2023-06-14 11:33] LABS: Alanine Aminotransferase 25 U/L (0-41); Albumin Level 4.4 g/dL (3.5-5.2); Alkaline Phosphatase 105 U/L (40-130); Anion Gap 11.5 (5-19); Aspartate Amino Transferase 18 U/L (0-40); Blood Urea Nitrogen 16 mg/dL (8-23); Carbon Dioxide 28 mmol/L (22-29); Chloride 105 mmol/L (98-107); Globulin 2.4 g/dL (1.3-4.6); Glucose 111 mg/dL (65-115); Osmolality Calculated 292 mOsm/kg (285-295); Potassium 4.5 mmol/L (3.5-5.1); Sodium 140 mmol/L (136-145); Total Bilirubin 0.4 mg/dL (0.15-1.2); Total Protein 6.8 g/dL (6.6-8.7)
[2023-06-17 18:05] LABS: P190 BCR ALB1 NOT DETECTED; P190 BCR ALB1 Yes Test Yes; P210 BCR ALB1 NOT DETECTED; P210 BCR ALB1 Yes Test Yes; Prior Results NG; Source Peripheral blood
[2023-06-20 08:44] LABS: Erythropoietin 4.9 mIU/mL (2.6-18.5)
== END 2023-06-18 23:59 | disposition home or self-care (01) ==
PROVIDERS: PCP Internal Medicine; Visit Provider Internal Medicine Medical Oncology
DX: F17.210 Nicotine dependence, cigarettes, uncomplicated (principal); D75.1 Secondary polycythemia
CPT/HCPCS: 36415; 80053; 81206; 81207; 82668; 85025; 99215

== ENCOUNTER 2023-07-04 12:52 | Outpatient (CLI) | payer SELFPAY ==
--- NOTE | 2023-07-04 12:59 | MR_ITS ---
WS: [email or web address] MRI LUMBAR SPINE NONCONTRAST HISTORY: DEGENERATION DISC DZ,LUMBOSACRAL SPINE W/RADICULOPATHY COMPARISON: 08/18/2011 TECHNIQUE: Sagittal and axial multisequence imaging is submitted. Slight increase in the lumbar lordosis. 2 mm anterolisthesis of L4. Since the prior MRI from 2010 pos terior L4-5 lumbar fusion is been performed. There is an interbody spacer at L4-5. No fracture or mar row edema. Mild desiccation of the discs. Conus terminates normally at L1-2 disc level. L1-L2: Small central disc protrusion and mild disc bulging bilateral facet joint arthritis.. L2-L3: Mild facet arthritis. No stenosis. L3-L4: Mild annular disc bulging. Mild osteophytic ridging. Bilateral facet joint arthritis encroachi ng upon the thecal sac and foramina. There is a large posterior laminectomy defect posterior to L4. M oderate central and bilateral subarticular recess stenosis. There is more significant narrowing of th e foramina. Near complete effacement of CSF. Moderate to severe bilateral foraminal stenosis. Most si gnificant contact upon the exiting L3 nerve roots. L4-L5: Mild annular disc bulging. Mild bilateral foraminal stenosis. There is a small disc or osteoph yte contacting the exiting RIGHT L4 nerve root. Mild bilateral foraminal stenosis. Large posterior la minectomy defect. L5-S1: Mild annular disc bulging with moderate facet and ligamentum flavum hypertrophy. Moderate bila teral foraminal stenosis. Paravertebral soft tissues are normal. LEFT renal cyst 1.7 cm. IMPRESSION: 1. Posterior lumbar fusion with decompression at L4-5. 2. L4 anterolisthesis by 2 mm. 3. L3-4: Moderate to severe bilateral foraminal stenosis. Most significant contact on the L3 exiting nerve roots. Moderate central and bilateral subarticular recess stenosis also. 4. L4-5: Mild bilateral foraminal stenosis. 5. L5-S1: Moderate bilateral foraminal stenosis.
--- NOTE | 2023-07-04 12:59 | MR_ITS ---
WS: [email or web address] MRI THORACIC SPINE noncontrast HISTORY: DEGENERATION OF THORACIC INTERVERTEBRAL DISC COMPARISON: 08/18/2011 TECHNIQUE: Multiplanar sequences are performed in sagittal and axial planes. Osteophytes and disc bulging is noted throughout the cervical spine from C3-4 through C6-7. Component s of stenosis are suspected. 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 Mild increase in thoracic kyphosis. No fractures or marrow edema. T1-2: No stenosis. Mild facet arthritis. T2-3: Mild facet arthritis. T3-4: Normal. T4-5: Normal. T5-6: Shallow central disc protrusions. No stenosis. Mild facet arthritis. T6-7: Shallow central disc protrusion. No stenosis. T7-8: Mild disc bulging and very shallow central disc protrusion. Mild contact on the ventral cord. M ild foraminal stenosis. T8-9: Moderate RIGHT paracentral disc protrusion contacts and displaces the ventral cord. Mild facet joint arthritis. T9-10: Shallow central disc protrusion contacts the ventral cord. Mild foraminal stenosis. T10-11: Mild disc bulging and mild bilateral facet joint arthritis and foraminal narrowing. T11-12: Asymmetric disc bulging to the LEFT. Mild encroachment upon the LEFT lateral thecal sac. Superior pole 1.4 cm LEFT renal cyst. There is an additional cyst in the mid kidney measuring 1.9 cm. IMPRESSION: 1. Mild thoracic spondylosis. 2. Moderate RIGHT paracentral disc protrusion at T8-9 contacts and displaces the cord minimally. 3. Very shallow central disc protrusions at T5-6, T6-7, T7-8 and T9-10. No high-grade central stenosi s.
== END 2023-07-04 12:53 | disposition home or self-care (01) ==
LOC: RAD 12:54
PROVIDERS: PCP Internal Medicine; Visit Provider Internal Medicine
DX: M51.34 Other intervertebral disc degeneration, thoracic region (principal); M51.17 Intervertebral disc disorders with radiculopathy, lumbosacral region; M47.814 Spondylosis without myelopathy or radiculopathy, thoracic region; M51.24 Other intervertebral disc displacement, thoracic region; M48.07 Spinal stenosis, lumbosacral region
CPT/HCPCS: 72146; 72148

== ENCOUNTER 2023-07-18 15:30 | Oncology outpatient (recurring) (ONCR) | payer MEDICARE, SELFPAY ==
[2023-07-14 13:25] VITALS: BP 188/90; PULSE 77; RESP 18; TEMP 36.6; O2SAT 98
[2023-07-14 13:42] LABS: Basophils % 0.3 %; Eosinophils # 0.2 10^3/uL (0.0-0.8); Eosinophils % 1.8 %; Hematocrit 53.5 % (37-53); Lymphocytes # 2.7 10^3/uL (0.8-4.8); Lymphocytes % 20.4 %; Mean Corpuscular HGB Conc 32.9 g/dL (30-55); Mean Corpuscular Hemoglobin 28.8 pg (27-33); Mean Corpuscular Volume 87.6 fl (82-101); Mean Platelet Volume 10.3 fL (7.4-10.4); Monocytes # 1.2 10^3/uL (0.2-0.9); Monocytes % 8.9 %; Neutrophils # 8.82 10^3/uL (1.8-7.7); Neutrophils % 67.8 %; Nucleated Red Blood Cells % 0 %; Platelet Count 274 10^3/cmm (157-399); Red Blood Count 6.11 10^6/uL (3.85-5.65); Red Cell Distribution Width 13.3 % (12.1-15.1)
[2023-07-14 14:03] LABS: Add Urine Microscopic? NO; Charge for UA Resulting for Rev
[2023-07-14 14:17] LABS: Bilirubin Urine Neg (Negative); Blood Urine Neg (Negative); Glucose Urine UA Norm (Normal); Ketones Urine Negative (Negative); Leukocyte Esterase Urine Negative (Negative); Nitrate Urine Negative (Negative); Protein Urine Neg (Negative); Urine Appearance Clear (CLEAR); Urine Color Yellow (Yellow); Urobilinogen Urine Norm (Negative); pH Urine 5 (5-7)
--- NOTE | 2023-07-14 14:49 | PC.NURSE ---
Discussed care with nelson and patient requests to have next MD visit before having phlebotomy procedure done today. Patient discussed with MD nurse upon discharge.
[2023-07-18 17:04] VITALS: BP 136/90; PULSE 82; TEMP 36.7; O2SAT 96
[2023-07-22 23:05] LABS: CALR Exon 9 Mutation NOT DETECTED (NOT DETECTED); CSF3R Exon 14/17 Mutation NOT DETECTED (NOT DETECTED); JAK2 Exon 12 Mutation NOT DETECTED (NOT DETECTED); JAK2 V617 Block Specimen ID NG; JAK2 V617 Clinical Indication NG; JAK2 V617 Mutation NOT DETECTED (NOT DETECTED); JAK2 V617 Specimen Source NG; MPL Exon 12 Mutation NOT DETECTED (NOT DETECTED)
== END 2023-07-19 23:59 | disposition home or self-care (01) ==
PROVIDERS: Internal Medicine Medical Oncology; Nurse Practitioner Family; PCP Internal Medicine; Visit Provider Internal Medicine Medical Oncology
DX: D75.1 Secondary polycythemia (principal)
CPT/HCPCS: 36415; 81003; 81270; 81279; 81339; 81479; 85025; 99195

== ENCOUNTER → 2023-07-25 14:39 | Outpatient (BNVA) | payer MEDICARE, SELFPAY | PROVIDERS: PCP Internal Medicine; Visit Provider Internal Medicine Medical Oncology | DX: D75.1 Secondary polycythemia (principal); F17.210 Nicotine dependence, cigarettes, uncomplicated; J44.9 Chronic obstructive pulmonary disease, unspecified; G47.30 Sleep apnea, unspecified; Z91.199 Patient's noncompliance with other medical treatment and regimen due to unspecified reason; Z95.5 Presence of coronary angioplasty implant and graft; I25.10 Atherosclerotic heart disease of native coronary artery without angina pectoris; Z79.82 Long term (current) use of aspirin | CPT/HCPCS: 99215 ==